=== PATIENT | male | born 2005 | race Caucasian/White ===

== ENCOUNTER 2023-07-12 19:35 | Emergency (ER) | payer SELFPAY ==
[2023-07-12] MEDS ORDERED: Diphtheria,Pertussis(Acell),Tetanus Vaccine 0.5 ML Syringe IM ONE (22:01)
[2023-07-12] MEDS ORDERED: Lidocaine 1% 10 ML MDV INJECT ONE (22:01)
[2023-07-12] MEDS ORDERED: Cephalexin 500 MG Cap PO ONE (22:03)
== END 2023-07-12 23:15 | disposition home or self-care (01) ==
LOC: JD.ED 19:35
DX: S61.112A Laceration without foreign body of left thumb with damage to nail, initial encounter (principal); Z88.0 Allergy status to penicillin; Z23 Encounter for immunization; Z88.1 Allergy status to other antibiotic agents; W26.0XXA Contact with knife, initial encounter
CPT/HCPCS: 12001; 90471; 90715; 99282; A9270; J3490

== ENCOUNTER 2023-07-24 11:18 | Emergency (ER) | payer SELFPAY | END 2023-07-24 11:51 | disposition home or self-care (01) | LOC: JD.ED 11:18 | DX: S61.012D Laceration without foreign body of left thumb without damage to nail, subsequent encounter (principal); Z48.02 Encounter for removal of sutures | CPT/HCPCS: 99281 ==

== ENCOUNTER 2024-02-13 23:57 | Emergency (ER) | payer BC | END 2024-02-14 00:32 | disposition left against medical advice (07) | LOC: JD.ED 23:57 | DX: R45.851 Suicidal ideations (principal); F32.A Depression, unspecified; F10.10 Alcohol abuse, uncomplicated; Z88.0 Allergy status to penicillin; Z88.1 Allergy status to other antibiotic agents | CPT/HCPCS: 99284; 99285 ==